=== PATIENT | male | born 1975 | race African-American/Black ===

== ENCOUNTER 2023-02-05 20:52 | Emergency (ER) | payer OTHER ==
[~2023-02-05] VITALS: Ht 177.8 cm; Wt 100.0 kg
[2023-02-05 21:09] VITALS: BP 176/90; PULSE 80; RESP 18; TEMP 98.7; O2SAT 98
== END 2023-02-05 23:14 | disposition home or self-care (01) ==
LOC: ER 20:52 → EDBD 20:52 → ER 23:14
DX: T40.991A Poisoning by other psychodysleptics [hallucinogens], accidental (unintentional), initial encounter (principal); X58.XXXA Exposure to other specified factors, initial encounter
CPT/HCPCS: 99283

== ENCOUNTER 2023-02-17 17:20 | Emergency (ER) | payer MEDICAID, OTHER ==
[~2023-02-17] VITALS: Ht 177.8 cm; Wt 127.0 kg
[2023-02-17 17:50] VITALS: BP 165/90; PULSE 86; RESP 16; TEMP 98.4; O2SAT 99
== END 2023-02-17 19:56 | disposition home or self-care (01) ==
LOC: ER 17:20
DX: F19.10 Other psychoactive substance abuse, uncomplicated (principal); M79.673 Pain in unspecified foot
CPT/HCPCS: 99283